=== PATIENT | male | born 1970 | race Caucasian/White ===

== ENCOUNTER → 2019-12-10 08:42 | Outpatient (BNVA) | payer BC, SELFPAY | PROVIDERS: Family Provider Family Medicine; PCP Family Medicine; Visit Provider Urology | DX: N41.1 Chronic prostatitis (principal) | CPT/HCPCS: 81001 ==

== ENCOUNTER 2020-01-22 20:30 | Emergency (ER) | payer BC, SELFPAY ==
[2020-01-22 20:33] VITALS: BP 195/122; PULSE 95; RESP 18; TEMP 36.6; O2SAT 97; BMI 52.3
--- NOTE | 2020-01-22 20:51 | W.ED.GENADLT ---
HPI - General Adult General: Chief complaint: General Medical Stated complaint: skin/ right wrist swollen Time Seen by Provider: 01/22/20 20:43 Source: patient Mode of arrival: ambulatory Limitations: no limitations History of Present Illness: HPI narrative: 49-year-old male states he has had cellulitis in the past. Patient started having erythema of his right wrist with slight pain. He denies any fevers. States pain is sharp in nature rates it a 2 out of 10. Denies any worsening or improving factors. He states that started roughly 1 hour ago. Associated symptoms: Deny chest pain, dyspnea, headache(s), nausea or vomiting Review of Systems Const: Denies: fever(s), chills, body aches or change in appetite Eyes: Denies: blurry vision or eye discomfort ENMT: Denies: throat pain or dental pain Card: Denies: chest pain Resp: Denies: dyspnea GI: Denies: abdominal pain, nausea, vomiting or diarrhea : Denies: dysuria Musc: Denies: neck pain or back pain Skin/Breast: Reports: erythema Neuro: Denies: headache(s) Psych: Denies: depression Jack/Lymph: Denies: easy bruising All/Imm: Denies: urticaria PFSH ED PFSH: Medical History (Updated 01/22/20 @ 20:47 by Thom Bullock MD) Prostatitis Surgical History History of appendectomy History of colon resection History of surgery on arm METAL PLATES AND SCREWS Family History Father Parkinsons CAD (coronary artery disease) Mother CAD (coronary artery disease) Diabetes Other Cancer Social History Smoking and tobacco status: never smoked Alcohol intake: never Adopted: No Caregiver/support person: No Lives independently: No Household members: spouse Marital status: Current occupational status: employed History of recent travel: No Physical Exam Const: COMMON NORMALS: no acute distress, patient oriented x3 and healthy appearing HENMT: COMMON NORMALS: normocephalic and atraumatic HEAD & SCALP: normocephalic and atraumatic Eye: COMMON NORMALS: Equal, round and reactive pupils present and EOMs intact bilaterally PUPIL: Yes Equal, round and reactive pupils present Neck/C-Spine: COMMON NORMALS: full ROM and supple Chest: COMMONS NORMALS: normal inspection of the chest and normal palpation of entire chest wall Resp: COMMON NORMALS: normal respiratory effort, No retractions, No use of accessory muscles and clear to auscultation bilaterally AUSCULTATION: clear to auscultation bilaterally Cardio: COMMON NORMALS: regular rate, regular rhythm and No murmurs present (Cardio) RATE: regular rate RHYTHM: regular rhythm GI: COMMON NORMALS: Normal to inspection, nondistended, normoactive bowel sounds present, Soft to palpation, non-tender and no masses PALPATION: Yes Soft to palpation Extremity: COMMON NORMALS: normal to inspection and full ROM Neuro: COMMON NORMALS: patient oriented x3, moves all extremities and no focal motor deficits Psych: COMMON NORMALS: mental status grossly normal, Normal thought process present and cooperative THOUGHT PROCESS: Normal thought process present Skin: COMMON NORMALS: no rashes or lesions noted and no wounds GENERAL SKIN EXAM: no rashes or lesions noted Course Vital Signs: Vital signs: Vital Signs Temperature 97.9 F 01/22/20 20:33 Pulse Rate 95 01/22/20 20:33 Respiratory Rate 18 01/22/20 20:33 Blood Pressure 195/122 01/22/20 20:33 Pulse Oximetry 97 01/22/20 20:33 MDM - General Adult MDM Narrative: Medical decision making narrative: Patient presents with cellulitis. Patient has no signs of septic joint or osteomyelitis. Will place patient on Keflex. He is to follow-up with PCP in 2 to 4 days return to ER if worsening. Discharge Plan Discharge Patient Disposition: Home Clinical Impression: Cellulitis Qualifiers: Site of cellulitis: extremity Site of cellulitis of extremity: upper extremity Laterality: right Qualified Code(s): L03.113 - Cellulitis of right upper limb Condition: Stable Prescriptions: New Keflex 500 mg capsule 500 mg PO Q6H 7 Days Qty: 28 RF: 0 No Action ciprofloxacin HCl 500 mg tablet 500 mg PO BID Qty: 60 RF: 1 Discharge Orders: Discharge Order (Routine); Ordered 01/22/20 Ordered By: Thom Bullock Referrals: Jasmine Westbrook DO [Primary Care Provider] - 1-3 days Discharge Diet: Advance as tolerated Discharge Activity: Resume usual activity Patient Instructions: Cellulitis (ED) Coding Level of Care Code ED Air And Water Tester for Maryan Oneal
[2020-01-22] MEDS: cefTRIAXone 1,000 mg SDV 1000 MG IM (21:05)
[2020-01-22 21:21] VITALS: BP 145/87; PULSE 78; RESP 18; O2SAT 99
== END 2020-01-22 21:24 | disposition home or self-care (01) ==
PROVIDERS: Emergency Provider Emergency Medicine; PCP Family Medicine
DX: L03.113 Cellulitis of right upper limb (principal)
CPT/HCPCS: 12345; 96372; 99281; 99283; J0696

== ENCOUNTER 2020-06-07 09:28 | Day surgery (SDC) | payer OTHER, SELFPAY ==
[2020-06-07 09:40] VITALS: BP 180/132; PULSE 76; RESP 18; TEMP 36.3; O2SAT 97; BMI 51.6
--- NOTE | 2020-06-07 10:25 | XRR_ITS ---
PROCEDURE INFORMATION: Exam: XR Chest, 1 View Exam date and time: 06/07/2020 10:37 AM Age: 50 years old Clinical indication: Cough and dyspnea; Additional info: Dyspnea/cough TECHNIQUE: Imaging protocol: XR of the chest Views: 1 view. COMPARISON: No relevant prior studies available. FINDINGS: Lungs: Unremarkable. No consolidation. Pleural space: Unremarkable. No pleural effusion. No pneumothorax. Heart/Mediastinum: Unremarkable. No cardiomegaly. Bones/joints: Unremarkable. XR/XR chest 1V portable [id number] IMPRESSION: No acute findings.
--- NOTE | 2020-06-07 10:30 | CT_ITS ---
WS: [id number] CT ABDOMEN AND PELVIS WITH CONTRAST HISTORY: Abdominal pain. Prior bowel resection. TECHNIQUE: Imaging performed of the abdomen and pelvis with IV contrast. Single phase imaging of the abdomen. Coronal and sagittal reformats are submitted. All CT scans at [facility] use at least one of these dose optimization techniques: automated exposure control; mA and/or kV adjustment per patient size (includes targeted exams where dose is matched to clinical indication); or iterativ e reconstruction. IV CONTRAST: Omnipaque 300; 95 mL IV. Oral contrast: No DLP: 2586.48 mGy.cm COMPARISON: 07/07/2011 Lower thorax: Stable 2 mm nodule in the LEFT lower lobe. Heart is normal size. Small hiatal hernia. Liver/biliary system: Normal liver with diffuse hepatic steatosis. No bile duct dilatation. Gallbladder: Normal. No gallstones or wall thickening. No pericholecystic fluid. Pancreas: Normal. Spleen: Normal. Adrenal glands: Normal. Right kidney: Mild perinephric stranding with no obstruction. There are multiple low-attenuation mass es within the parenchyma. Exophytic mass measures 3.7 cm from the mid kidney. Left kidney: Mild perinephric stranding. No obstruction. Hypodense masses with the largest measuring 2.0 cm from the mid kidney. Aorta: Normal. Lymphadenopathy: None. Free fluid: None. GI tract: No GI tract obstruction. Prior appendectomy. Abdominal wall: Multifocal abdominal wall hernias are identified. The largest hernias below the umbil icus with a maximum diameter of 6.6 cm with herniation of omental fat. Supraumbilical hernia contains fat only. There is no GI tract obstruction or incarceration of bowel. Pelvis: No free fluid. Negative urinary bladder. There is an enhancing collection measuring 1.5 x 1.9 cm to the LEFT of the anus near the gluteal cleft. Bones: No osteoblastic or osteolytic bone disease. CT/CT abdomen pelvis w con* [id number] IMPRESSION: 1. 1.5 x 1.9 cm abscess just to the LEFT of the anus. 2. Prior appendectomy. 3. Multifocal supraumbilical and infraumbilical abdominal wall hernias contain ing fat only. 4. Indeterminate bilateral cystic masses within each kidney. These have increa sed in size and number since 2011. Probably representing small complex cysts. S uggest follow-up renal mass CT protocol in 6 months to confirm stability. Ultra sound may not be helpful due to patient's body habitus. 5. Hepatic steatosis.
--- NOTE | 2020-06-07 10:32 | ED_ITS ---
HPI - General Adult General: Chief complaint: General Medical Stated complaint: sent from [facility], might need scope Time Seen by Provider: 06/07/20 10:24 History of Present Illness: HPI narrative: 50-year-old male presents emergency room with complaint of pelvic discomfort he has a history of anal fistula he was sent here by a his PCP for a possible endoscopy per the patient. He denies any fever sweats or chills. Denies dysuria urgency or frequency. Denies hematochezia melena hematemesis or coffee-ground emesis.. Onset (ago): day(s) Location: pelvis Radiation: non-radiation Severity: moderate Quality: aching Pain Consistency: intermittent Relieving factors: none Associated symptoms: Reports decreased appetite, fevers/chills, malaise and nausea; Deny chest pain, confusion, cough, diaphoresis, dyspnea, headache(s), rash, palpitations, seizures, short of breath, syncope, vomiting or weakness Treatments prior to arrival: none Review of Systems Const: Reports: malaise; Denies: diaphoresis ENMT: Denies: throat pain, ear or mastoid pain, nasal discharge or nasal congestion Card: Denies: chest pain, palpitations or syncope Resp: Denies: dyspnea GI: Reports: nausea; Denies: vomiting : Denies: flank pain, dysuria, urinary frequency or urinary urgency Skin/Breast: Denies: rash Neuro: Denies: headache(s) or confusion [facility] ED PFSH: Medical History (Updated 06/07/20 @ 12:45 by Tristan Schultz DO) Prostatitis Surgical History History of appendectomy History of colon resection History of surgery on arm METAL PLATES AND SCREWS Family History Father Parkinsons CAD (coronary artery disease) Mother CAD (coronary artery disease) Diabetes Other Cancer Social History Smoking and tobacco status: never smoked Alcohol intake: never Adopted: No Caregiver/support person: No Lives independently: No Household members: spouse Marital status: Current occupational status: employed History of recent travel: No Physical Exam Const: COMMON NORMALS: no acute distress GENERAL APPEARANCE: cooperative and comfortable ORIENTATION/CONSCIOUSNESS: Yes awake, Yes oriented to person, Yes oriented to place and Yes oriented to time HENMT: COMMON NORMALS: normocephalic, atraumatic and hearing grossly normal bilaterally HEAD & SCALP: normocephalic and atraumatic Neck/C-Spine: COMMON NORMALS: no JVD Resp: COMMON NORMALS: normal respiratory effort, No retractions, No use of accessory muscles and clear to auscultation bilaterally AUSCULTATION: clear to auscultation bilaterally Cardio: COMMON NORMALS: no JVD, regular rate, regular rhythm and No murmurs present (Cardio) RATE: regular rate RHYTHM: regular rhythm GI: COMMON NORMALS: Soft to palpation and No hepatosplenomegaly present AUSCULTATION: Yes normoactive bowel sounds PALPATION: Yes Soft to palpation, No Tenderness to palpation present (GI), No Guarding due to palpation present (GI) and Yes No hepatosplenomegaly present Extremity: COMMON NORMALS: normal to inspection, capillary refill normal, no clubbing, cyanosis or edema, no calf tenderness and no pedal edema Neuro: SENSORIUM/ORIENTATION: Yes oriented to person, Yes oriented to place and Yes oriented to time Skin: COMMON NORMALS: no rashes or lesions noted GENERAL SKIN EXAM: no rashes or lesions noted Course Vital Signs: Vital signs: Vital Signs Temperature 97.3 F L 06/07/20 09:40 Pulse Rate 76 06/07/20 09:40 Respiratory Rate 18 06/07/20 09:40 Blood Pressure 180/132 06/07/20 09:40 Pulse Oximetry 97 06/07/20 09:40 MDM - General Adult MDM Narrative: Medical decision making narrative: Left-sided perirectal abscess seen on CT discussed Dr. Noonan patient will be taken directly to the operating room and have it incised and drained under anesthesia and then discharged home from outpatient surgery. Patient was given Unasyn here in the emergency room. His last meal was 11:00 last night. Lab Data: Labs: Lab Results 06/07/20 06/07/20 Range/Units 10:52 10:52 WBC 7.1 (4.0-10.0) 10^3/ uL RBC 5.12 (4.1-5.3) 10^6/u L Hgb 14.9 (11.7-16.6) g/dL Hct 45.5 (42.0-52.0) % MCV 88.9 (80-94) fL MCH 29.1 (28.0-34.0) pg MCHC 32.7 (30.0-36.0) g/dL RDW 12.5 (12.1-15.1) % Plt Count 299 (130-400) 10^3/c mm MPV 9.1 (7.4-10.4) fL Neut % (Auto) 64.0 % Lymph % (Auto) 23.7 % [place] % (Auto) 9.3 % Eos % (Auto) 2.1 % Baso % (Auto) 0.6 % Neut # (Auto) 4.56 (1.8-7.7) 10^3/u L Lymph # (Auto) 1.7 (0.8-4.8) 10^3/u L [place] # (Auto) 0.7 (0.2-0.9) 10^3/u L Eos # (Auto) 0.2 (0.0-0.8) 10^3/u L Baso # (Auto) 0.0 (0.0-0.1) 10^3/u L Nucleated RBC % (a uto) 0 % Nucleated RBCs # 0.0 /100WBC Sodium 143 (136-145) mmol/L Potassium 4.5 (3.5-5.1) mmol/L Chloride 105 (98-107) mmol/L Carbon Dioxide 27 (22-29) mmol/L Anion Gap 15.5 (5-19) BUN 15 (6-20) mg/dL Creatinine 0.9 (0.7-1.2) mg/dL GFR Calculation 90.1 (90-130) mL/min Glucose 104 (65-115) mg/dL Calculated Osmolal ity 297 H (285-295) mOsm/k g Calcium 9.4 (8.5-10.5) mg/dL Total Bilirubin 0.5 (0.15-1.2) mg/dL AST 22 (0-40) U/L ALT 30 (0-41) U/L Alkaline Phosphata se 36 L (40-130) IU/L Total Protein 7.5 (6.6-8.7) g/dL Albumin 4.4 (3.5-5.2) g/dL Globulin 3.1 (1.3-4.6) g/dL Discharge Plan Discharge Patient Disposition: Placed in Observation Clinical Impression: Abscess, perirectal Condition: Stable Coding Level of Care Code ED Mold Closer Helper for Carolag Fwd Exam Comprehensive
[2020-06-07] MEDS: iohexol 300 mg/mL 100 mL Btl IV (11:02)
[2020-06-07 11:11] LABS: Basophils % 0.6 %; Eosinophils # 0.2 10^3/uL (0.0-0.8); Eosinophils % 2.1 %; Hematocrit 45.5 % (42.0-52.0); Hemoglobin 14.9 g/dL (11.7-16.6); Lymphocytes # 1.7 10^3/uL (0.8-4.8); Lymphocytes % 23.7 %; Mean Corpuscular HGB Conc 32.7 g/dL (30.0-36.0); Mean Corpuscular Hemoglobin 29.1 pg (28.0-34.0); Mean Corpuscular Volume 88.9 fL (80-94); Mean Platelet Volume 9.1 fL (7.4-10.4); Monocytes # 0.7 10^3/uL (0.2-0.9); Monocytes % 9.3 %; Neutrophils # 4.56 10^3/uL (1.8-7.7); Nucleated Red Blood Cells % 0 %; Platelet Count 299 10^3/cmm (130-400); Red Blood Count 5.12 10^6/uL (4.1-5.3); Red Cell Distribution Width 12.5 % (12.1-15.1); White Blood Count 7.1 10^3/uL (4.0-10.0)
[2020-06-07 11:25] LABS: Alanine Aminotransferase 30 U/L (0-41); Albumin Level 4.4 g/dL (3.5-5.2); Alkaline Phosphatase 36 IU/L (40-130); Anion Gap 15.5 (5-19); Aspartate Amino Transferase 22 U/L (0-40); Blood Urea Nitrogen 15 mg/dL (6-20); Calcium 9.4 mg/dL (8.5-10.5); Carbon Dioxide 27 mmol/L (22-29); Chloride 105 mmol/L (98-107); Creatinine Clr Calc Pharmacy 154.9195; Globulin 3.1 g/dL (1.3-4.6); Glomerular Filtration Rate 90.1 mL/min (90-130); Glucose 104 mg/dL (65-115); Osmolality Calculated 297 mOsm/kg (285-295); Potassium 4.5 mmol/L (3.5-5.1); Sodium 143 mmol/L (136-145); Total Bilirubin 0.5 mg/dL (0.15-1.2); Total Protein 7.5 g/dL (6.6-8.7)
[2020-06-07] MEDS: sodium chloride 0.9% 1,000 ML 999 ML IV (12:23)
--- NOTE | 2020-06-07 12:39 | P.ANESASSM_ITS ---
Pre-Anesthetic Assessment Pre-Anesthetic Assessment: Height/Weight: Height 1.78 m Weight 163.293 kg Temp Pulse Resp BP Pulse Ox 97.3 F L 76 18 180/132 97 06/07/20 09:40 06/07/20 09:40 06/07/20 09:40 06/07/20 09:40 06/07/20 09:40 Preop Diagnosis: Anal abscess Proposed Procedure: Operation Date: 06/07/20 12:55 Proposed Procedures p Incision And Drainage(Not Applicable) - Michael Noonan MD Familial anesthetic complications: None Was Beta Mitul taken within 24 hours: N/A Last intake: NPO > 8 hrs Social: Social History: No alcohol and No tobacco Exam: Pre-Anes Outpt Exam: alert, oriented x 3, clear to auscultation bilaterally and regular rate & rhythm Airway: Cervical ROM: WNL MP: 4 Dentition: Chipped (bottom front) Additional comments: large neck circumference Metabolic: Metabolic: Morbid obesity Anesthetic Plan: ASA status: 2 Anesthesia: MAC Risk of > 500 ml blood loss (7ml/kg in children): No PFSH Anesthesia PFSH: Medical History Prostatitis Surgical History History of appendectomy History of colon resection History of surgery on arm METAL PLATES AND SCREWS Family History Father Parkinsons CAD (coronary artery disease) Mother CAD (coronary artery disease) Diabetes Other Cancer Social History Smoking and tobacco status: never smoked Alcohol intake: never Adopted: No Caregiver/support person: No Lives independently: No Household members: spouse Marital status: Current occupational status: employed History of recent travel: No Data Anesthesia CBC & Chem 7: 06/07/20 10:52 06/07/20 10:52 Other Labs: Laboratory Results - last 48 hr 06/07/20 06/07/20 10:52 10:52 WBC 7.1 RBC 5.12 Hgb 14.9 Hct 45.5 MCV 88.9 MCH 29.1 MCHC 32.7 RDW 12.5 Plt Count 299 MPV 9.1 Neut % (Auto) 64.0 Lymph % (Auto) 23.7 [place] % (Auto) 9.3 Eos % (Auto) 2.1 Baso % (Auto) 0.6 Neut # (Auto) 4.56 Lymph # (Auto) 1.7 [place] # (Auto) 0.7 Eos # (Auto) 0.2 Baso # (Auto) 0.0 Nucleated RBC % (auto) 0 Nucleated RBCs # 0.0 Sodium 143 Potassium 4.5 Chloride 105 Carbon Dioxide 27 Anion Gap 15.5 BUN 15 Creatinine 0.9 GFR Calculation 90.1 Glucose 104 Calculated Osmolality 297 H Calcium 9.4 Total Bilirubin 0.5 AST 22 ALT 30 Alkaline Phosphatase 36 L Total Protein 7.5 Albumin 4.4 Globulin 3.1 Cardiac Studies: No Data to Display
[2020-06-07 12:58] VITALS: BP 197/121; PULSE 74; RESP 18; TEMP 36.7; O2SAT 98
--- NOTE | 2020-06-07 13:05 | PM.HP ---
Providers/Chief Complaint Primary Care Provider: Jasmine Westbrook DO Chief Complaint: sent from [facility], might need scope History of Present Illness Gian Arellano is a 50 year old male who has been dealing with recurrent episodes of perianal abscess for many years and usually has 3-4 flareups a year which subsequently drains spontaneously and resolves. He has had an incision and drainage by his PCP on one occasion. He states that 3 days ago he started having pain, redness and swelling in that region. Denies any fevers, chills or abdominal pain. Patient has family history of colon cancer and his last colonoscopy was more than 10 years ago. Denies bleeding AR. Review of Systems General: Reports: 10 or more systems reviewed and unremarkable except in HPI and below Medications/Allergies Home Medications Medication Instructions Recorded Confirmed Last Taken Type aspirin 325 mg PO PRN PRN 06/07/20 06/07/20 06/05/20 History ibuprofen 200 mg PO Q6H PRN 06/07/20 06/07/20 06/06/20 History Allergies Allergy/AdvReac Type Severity Reaction Status Date / Time tetanus and diphtheria Allergy Severe RASH Verified 06/07/20 12:52 toxoids vancomycin Allergy Severe RASH Verified 06/07/20 12:52 meperidine [From Demerol] Allergy Mild RASH Verified 06/07/20 12:52 erythromycin base Allergy Unknown UNKNOWN Verified 06/07/20 12:52 PFSH Acute PFSH: Medical History (Updated 06/07/20 @ 13:11 by Michael Noonan MD) HTN (hypertension) Prostatitis Surgical History History of appendectomy History of colon resection History of surgery on arm METAL PLATES AND SCREWS Family History Father Parkinsons CAD (coronary artery disease) Mother CAD (coronary artery disease) Diabetes Other Cancer Social History Smoking and tobacco status: never smoked Alcohol intake: never Adopted: No Caregiver/support person: No Lives independently: No Household members: spouse Marital status: Current occupational status: employed History of recent travel: No Vitals/I&O/Wt Last Vital Signs Temp 97.3 F L 06/07/20 09:40 Pulse 76 06/07/20 09:40 Resp 18 06/07/20 09:40 BP 180/132 06/07/20 09:40 Pulse Ox 97 06/07/20 09:40 Weight last 48 hrs Weight 360 lb Physical Exam Narrative: EXAM NARRATIVE: HEENT: Normocephalic Eye: Sclera /conjunctiva normal Respiratory and chest: Bilateral clear breath sounds on auscultation Cardiovascular: Normal S1 and S2 heart sounds Abdomen: Soft to palpation Neurological: Oriented to place person and time Skin: Intact, 3 x 3 cm perianal abscess Data : 06/07/20 10:52 06/07/20 10:52 A&P Assessment and plan (1) Abscess, perirectal: 50-year-old male with recurrent perianal abscesses. Patient currently hemodynamically stable, no leukocytosis, no evidence of sepsis. Discussed with the patient about possibility of underlying fistula. Plan for incision and drainage of perianal abscess, possible fistulotomy Procedure, risks, benefits and alternatives have been discussed with the patient who wishes to proceed with surgery. Status: Acute Attestations Medical Necessity Statement*: Perianal abscess for I&D Coding Level of Care Code Acute Travel Information Center Supervisor for [facility] Diagnoses Abscess, perirectal K61.1
[2020-06-07] MEDS: sodium chloride 0.9% 1,000 ML 30 ML IV (13:20)
[2020-06-07] MEDS: ampicillin-sulbactam 3 GM in sodium chloride 0.9% (plus) 50 ML IV (13:23)
[2020-06-07 14:11] VITALS: BP 154/104; PULSE 83; RESP 18; TEMP 36.4; O2SAT 100
--- NOTE | 2020-06-07 14:25 | PM.OP ---
Operative Report Date of procedure: June 07, 2020 Pre-op Diagnosis: Perianal abscess Post-op Diagnosis: 3 x 3 cm perianal abscess No obvious fistulous tract identified Procedure Done: Incision and drainage of perianal abscess Surgeon: Michael Noonan Anesthesia: MAC Condition: stable Disposition: PACU Procedure: The patient was taken to the operating room and placed in left lateral position under MAC after IV antibiotic had been administered. The perianal area was prepped and draped in a sterile manner. Using a lacrimal probe the opening of the abscess cavity was examined and there was no obvious fistulous tract identified. The tract was also injected with hydrogen peroxide mixed with saline and there was no internal opening identified. The abscess was opened using a 15 blade revealing a cavity measuring 3 x 3 cm. Loculations were taken down bluntly, wound irrigated with saline and cavity was packed with Kerlix gauze soaked in 0.5% Marcaine. ABDs were placed. The patient was transferred to recovery room in stable condition.
[2020-06-07 14:40] VITALS: BP 160/97; PULSE 79; RESP 18; O2SAT 100
--- NOTE | 2020-06-07 18:39 | ANE.PACU2 ---
Inpatient post-anesthesia follow up: Airway intact: Yes Vital signs: Temperature 97.6 F Pulse Rate [Monito r] 76 Pulse Rate 79 Respiratory Rate 18 Blood Pressure [Le ft Arm] 180/132 Blood Pressure 160/97 Pulse Oximetry 100 Oxygen Delivery Me thod Room Air Oxygen Flow Rate Fraction of Inspir ed Oxygen Hydration adequate: Yes Nausea and vomiting: No Pain level: 2 Mental status: Baseline
== END 2020-06-07 15:10 | disposition home or self-care (01) ==
LOC: ER 10:24 → OPS 12:22
PROVIDERS: Emergency Provider Family Medicine; PCP Family Medicine; Visit Provider Surgery
PROC: (CPT 46050; principal; 2020-06-07 12:55)
DX: K61.0 Anal abscess (principal); I10 Essential (primary) hypertension; E66.01 Morbid (severe) obesity due to excess calories; Z68.43 Body mass index [BMI] 50.0-59.9, adult; Z90.49 Acquired absence of other specified parts of digestive tract
CPT/HCPCS: 46050; 12345; 71045; 74177; 80053; 85025; 96365; 99282; J0295; J2250; J2704; J3010; J3490; J7030; Q9967

== ENCOUNTER → 2020-08-19 08:54 | Outpatient (BNVA) | payer OTHER, SELFPAY | PROVIDERS: PCP Family Medicine; Visit Provider Urology | DX: Z12.5 Encounter for screening for malignant neoplasm of prostate (principal); N41.1 Chronic prostatitis | CPT/HCPCS: 81003; G0103 ==

== ENCOUNTER → 2021-02-22 13:39 | Outpatient (BNVA) | payer OTHER, SELFPAY | PROVIDERS: PCP Family Medicine; Visit Provider Urology | DX: N41.1 Chronic prostatitis (principal); N20.1 Calculus of ureter; R39.15 Urgency of urination | CPT/HCPCS: 81003 ==

== ENCOUNTER → 2021-03-31 09:52 | Outpatient (BNVA) | payer OTHER, SELFPAY | PROVIDERS: PCP Family Medicine; Visit Provider Surgery | DX: Z11.52 Encounter for screening for COVID-19 (principal); Z20.822 Contact with and (suspected) exposure to COVID-19 | CPT/HCPCS: 87635 ==

== ENCOUNTER 2021-04-07 08:41 | Day surgery (SDC) | payer OTHER, SELFPAY ==
[2021-04-05 10:57] VITALS: BMI 52.2
--- NOTE | 2021-04-07 08:59 | ANES.PREANE2 ---
Pre-Anesthetic Assessment Pre-Anesthetic Assessment: Height/Weight: Height 1.78 m Weight 165.108 kg Preop Diagnosis: screening colonoscopy Proposed Procedure: Operation Date: 04/07/21 10:15 Proposed Procedures p Colonoscopy 30014 Z80.0(Not Applicable) - Michael Noonan MD Familial anesthetic complications: none Last intake: > 8 hrs Social: Social History: No alcohol and No tobacco Exam: Pre-Anes Outpt Exam: alert, oriented x 3, clear to auscultation bilaterally and regular rate & rhythm Airway: MP: 4 Dentition: Chipped Additional comments: large tongue CV/HEM: CV/HEM: HTN GI: Comments: bowel resection Metabolic: Metabolic: Morbid obesity Anesthetic Plan: ASA status: 2 Anesthesia: MAC Risk of > 500 ml blood loss (7ml/kg in children): No Other Pertinent Information: No blood products, no albumin, cellsaver accepts PFSH Anesthesia PFSH: Medical History (Updated 02/24/21 @ 17:06 by Gayla Brush) HTN (hypertension) Prostatitis Psychiatric care Umbilical hernia, incarcerated Surgical History History of appendectomy History of colon resection perforated appendix complications History of colonoscopy 5+ years ago History of surgery on arm METAL PLATES AND SCREWS Status post incision and drainage (06/07/20) Family History Father Parkinsons CAD (coronary artery disease) Mother CAD (coronary artery disease) Diabetes Other Cancer Social History Alcohol intake: never Adopted: No Caregiver/support person: No Lives independently: No Household members: spouse Marital status: Current occupational status: employed History of recent travel: No Data Anesthesia Cardiac Studies: No Data to Display
[2021-04-07 09:13] VITALS: BP 208/150; PULSE 83; RESP 18; TEMP 36.8; O2SAT 97
[2021-04-07] MEDS: sodium chloride 0.9% 1,000 ML 30 ML IV (09:25)
[2021-04-07] MEDS: lisinopril 5 mg Tablet PO (09:55)
[2021-04-07] MEDS: metoprolol succinate ER (24 HR) 50 mg Tablet PO (09:55)
[2021-04-07 09:57] VITALS: BP 221/128
[2021-04-07 10:39] VITALS: BP 162/104
--- NOTE | 2021-04-07 11:22 | P.HP_ITS ---
Same Day Surgery H&P Indication for Procedure/HPI DATE OF PROCEDURE: April 07, 2021 CHIEF COMPLAINT/INDICATIONFOR SURGICAL PROCEDURE: screening colonoscopy PREOP DIAGNOSIS: screening colonoscopy PLANNED PROCEDRUE: Operation Date: 04/07/21 10:15 Proposed Procedures p Colonoscopy 02433 Z80.0(Not Applicable) - Michael Noonan MD Medications/Allergies* Home Medications Medication Instructions Recorded Confirmed Type benazepril 5 mg tablet 5 mg PO BID tab 02/22/21 04/07/21 History metoprolol succinate 25 mg 25 mg PO BID tab 02/22/21 04/07/21 History tablet,extended release 24 hr Allergies/Adverse Reactions Allergy/AdvReac Type Severity Reaction Status Date / Time tetanus and diphtheria Allergy Severe RASH Verified 04/07/21 09:08 toxoids vancomycin Allergy Severe RASH Verified 04/07/21 09:08 meperidine [From Demerol] Allergy Mild RASH Verified 04/07/21 09:08 erythromycin base Allergy Unknown UNKNOWN Verified 04/07/21 09:08 Current Medications: Generic Name Dose Route Start Last Admin Trade Name Brianq PRN Reason Stop Dose Admin Sodium Chloride 1,000 mls @ 30 mls/hr 04/07/21 09:00 04/07/21 09:25 Sodium Chloride 0.9% IV 04/08/21 08:59 30 mls/hr .Q24H RADHA Administration Lisinopril 5 mg 04/07/21 09:00 04/07/21 09:55 Lisinopril 5 Mg Tablet PO 5 mg DAILY RADHA Administration Metoprolol Succinate 50 mg 04/07/21 09:45 04/07/21 09:55 Metoprolol Succinate Er (24 Hr) 50 Mg Tablet PO 50 mg DAILY RADHA Administration Pertinent History/Comorbid Conditions* Medical History (Updated 02/24/21 @ 17:06 by Gayla Brush) HTN (hypertension) Prostatitis Psychiatric care Umbilical hernia, incarcerated Surgical History (Updated 08/24/20 @ 15:24 by Michael Noonan MD) History of appendectomy History of colon resection perforated appendix complications History of colonoscopy 5+ years ago History of surgery on arm METAL PLATES AND SCREWS Status post incision and drainage (06/07/20) Family History (Updated 12/10/19 @ 08:39 by Carli Bennett LPN) Mother Diabetes Mother CAD (coronary artery disease) Father Mother Cancer Parkinsons Father Social History Alcohol intake: never Adopted: No Caregiver/support person: No Lives independently: No Household members: spouse Marital status: Current occupational status: employed History of recent travel: No Pertinent Exam Findings alert, oriented x 3 and regular rate & rhythm Recommendations Surgery/Procedure today Coding Level of Care Code Acute Wastewater Treatment Operator for Maryan Oneal
[2021-04-07 11:54] VITALS: BP 143/94; PULSE 73; RESP 16; TEMP 36.2; O2SAT 98
[2021-04-07 12:01] VITALS: BP 151/91; PULSE 72; RESP 18; TEMP 36.4; O2SAT 98
== END 2021-04-07 12:25 | disposition home or self-care (01) ==
PROVIDERS: PCP Family Medicine; Visit Provider Surgery
PROC: 0DJD8ZZ Inspection of Lower Intestinal Tract, Via Natural or Artificial Opening Endoscopic (ICD-10-PCS; CPT 45378; principal; 2021-04-07 10:15)
DX: Z12.11 Encounter for screening for malignant neoplasm of colon (principal); K57.30 Diverticulosis of large intestine without perforation or abscess without bleeding; I10 Essential (primary) hypertension; Z90.89 Acquired absence of other organs; Z98.890 Other specified postprocedural states
CPT/HCPCS: 96360; 96361; G0121; J2704; J7030

== ENCOUNTER → 2021-05-31 15:34 | Outpatient (BNVA) | payer OTHER, SELFPAY | PROVIDERS: PCP Family Medicine; Visit Provider Urology | DX: R39.15 Urgency of urination (principal) | CPT/HCPCS: 81003 ==

== ENCOUNTER 2021-11-28 19:07 | Emergency (ER) | payer OTHER, SELFPAY ==
[2021-11-28 19:13] VITALS: BP 215/119; PULSE 90; RESP 16; TEMP 37.8; O2SAT 98; BMI 53.4
--- NOTE | 2021-11-28 19:25 | XRR_ITS ---
PROCEDURE INFORMATION: Exam: XR Chest Exam date and time: 11/28/2021 7:47 PM Age: 51 years old Clinical indication: Other: Hypertention; Additional info: HTN TECHNIQUE: Imaging protocol: Radiologic exam of the chest. Views: 1 view. COMPARISON: CR XR chest 1V portable [id number] 06/07/2020 10:37 AM FINDINGS: Lungs: Unremarkable. No consolidation. Pleural spaces: Unremarkable. No pleural effusion. No pneumothorax. Heart/Mediastinum: Unremarkable. No cardiomegaly. Bones/joints: Unremarkable. XR/XR chest 1V portable [id number] IMPRESSION: No acute findings.
[2021-11-28 19:31] VITALS: BP 199/116; PULSE 95; RESP 22; O2SAT 97
--- NOTE | 2021-11-28 19:31 | W.ED.FEVER ---
HPI - Fever General: Chief Complaint: Fever Stated Complaint: High BP Time Seen by Provider: 11/28/21 19:20 Source: patient Mode of arrival: ambulatory Limitations: no limitations History of Present Illness: 51-year-old male who states that he has been having an ear infection ongoing for last few weeks. He states he is been prescribed steroid eardrops has not been on any antibiotic eardrops. States he also finished an oral antibiotic roughly 4 to 5 days ago. He states he was mainly concerned tonight about his blood pressure. He states he took it at home and it was over 200. He states his blood pressures actually been running high for quite some time. He has been taking his blood pressure medicine. Denies any pain anywhere besides his left ear. He states that ear pain he rates a 6 out of 10. Denies any headaches denies any vomiting or diarrhea. Associated symptoms: Deny abdominal pain, chest pain, diarrhea, dysuria, headache(s), nausea or vomiting Review of Systems Const: Reports: fever(s) Eyes: Denies: blurry vision or eye discomfort ENMT: Reports: ear or mastoid pain Card: Denies: chest pain Resp: Denies: dyspnea GI: Denies: abdominal pain, nausea, vomiting or diarrhea : Denies: dysuria Musc: Denies: neck pain or back pain Skin/Breast: Denies: rash Neuro: Denies: headache(s) Psych: Denies: depression Jack/Lymph: Denies: easy bruising All/Imm: Denies: urticaria PFSH ED PFSH: Medical History HTN (hypertension) Otitis externa Prostatitis Umbilical hernia, incarcerated Surgical History History of appendectomy History of colon resection cecetomy for perforated appendix complications History of colonoscopy (04/07/21) sigmoid diverticulosis History of surgery on arm METAL PLATES AND SCREWS Status post incision and drainage (06/07/20) Family History Father Parkinsons CAD (coronary artery disease) Mother CAD (coronary artery disease) Diabetes Other Cancer Social History Smoking and tobacco status: never smoked Alcohol intake: never Adopted: No Caregiver/support person: No Lives independently: No Household members: spouse Marital status: Current occupational status: employed History of recent travel: No Physical Exam Const: COMMON NORMALS: no acute distress, patient oriented x3 and healthy appearing HENMT: COMMON NORMALS: normocephalic and atraumatic HEAD & SCALP: normocephalic and atraumatic OTHER: otitiis media and otitis externa of left ear/ no mastoid tenderness Eye: COMMON NORMALS: Equal, round and reactive pupils present and EOMs intact bilaterally PUPIL: Yes Equal, round and reactive pupils present Neck/C-Spine: COMMON NORMALS: full ROM and supple Chest: COMMONS NORMALS: normal inspection of the chest and normal palpation of entire chest wall Resp: COMMON NORMALS: normal respiratory effort, No retractions, No use of accessory muscles and clear to auscultation bilaterally AUSCULTATION: clear to auscultation bilaterally Cardio: COMMON NORMALS: regular rate, regular rhythm and No murmurs present (Cardio) RATE: regular rate RHYTHM: regular rhythm GI: COMMON NORMALS: Normal to inspection, nondistended, normoactive bowel sounds present, Soft to palpation, non-tender and no masses PALPATION: Yes Soft to palpation Extremity: COMMON NORMALS: normal to inspection and full ROM Neuro: COMMON NORMALS: patient oriented x3, moves all extremities and no focal motor deficits Psych: COMMON NORMALS: mental status grossly normal, Normal thought process present and cooperative THOUGHT PROCESS: Normal thought process present Skin: COMMON NORMALS: no rashes or lesions noted and no wounds GENERAL SKIN EXAM: no rashes or lesions noted Course Vital Signs: Vital signs: Vital Signs Temperature 100.1 F H 11/28/21 19:13 Pulse Rate 90 11/28/21 19:13 Respiratory Rate 16 11/28/21 19:13 Blood Pressure 215/119 11/28/21 19:13 Pulse Oximetry 98 11/28/21 19:13 MDM - Fever Medical Decision Making Patient presents here with ear pain does have otitis externa and media we will start him on Keflex along with ofloxacin drops. He is hypertensive here we will double his metoprolol dose. He is stable for discharge is to follow-up with PCP and keep a log of his blood pressure. He is return if worsening he understands agrees to plan. Lab Data : 11/28/21 19:44 11/28/21 19:44 Radiology Impressions Chest X-Ray 11/28/21 19:25 IMPRESSION: No acute findings. Laboratory Results WBC 4.2 10^3/uL (4.0-10.0) 11/28/21 19:44 RBC 4.75 10^6/uL (4.1-5.3) 11/28/21 19:44 Hgb 14.0 g/dL (11.7-16.6) 11/28/21 19:44 Hct 40.9 % (42.0-52.0) L 11/28/21 19:44 MCV 86.1 fl (80-94) 11/28/21 19:44 MCH 29.5 pg (28.0-34.0) 11/28/21 19:44 MCHC 34.2 g/dL (30.0-36.0) 11/28/21 19:44 RDW 12.4 % (12.1-15.1) 11/28/21 19:44 Plt Count 218 10^3/cmm (130-400) 11/28/21 19:44 MPV 9.2 fL (7.4-10.4) 11/28/21 19:44 Neut % (Auto) 63.6 % 11/28/21 19:44 Lymph % (Auto) 17.2 % 11/28/21 19:44 [place] % (Auto) 16.0 % 11/28/21 19:44 Eos % (Auto) 1.4 % 11/28/21 19:44 Baso % (Auto) 0.9 % 11/28/21 19:44 Neut # (Auto) 2.69 10^3/uL (1.8-7.7) 11/28/21 19:44 Lymph # (Auto) 0.7 10^3/uL (0.8-4.8) L 11/28/21 19:44 [place] # (Auto) 0.7 10^3/uL (0.2-0.9) 11/28/21 19:44 Eos # (Auto) 0.1 10^3/uL (0.0-0.8) 11/28/21 19:44 Baso # (Auto) 0.0 10^3/uL (0.0-0.1) 11/28/21 19:44 Nucleated RBC % (auto) 0 % 11/28/21 19:44 Nucleated RBCs # 0.0 /100WBC 11/28/21 19:44 Sodium 138 mmol/L (136-145) 11/28/21 19:44 Potassium 4.1 mmol/L (3.5-5.1) 11/28/21 19:44 Chloride 102 mmol/L (98-107) 11/28/21 19:44 Carbon Dioxide 27 mmol/L (22-29) 11/28/21 19:44 Anion Gap 13.1 (5-19) 11/28/21 19:44 BUN 12 mg/dL (6-20) 11/28/21 19:44 Creatinine 0.8 mg/dL (0.7-1.2) 11/28/21 19:44 GFR Calculation 102.7 mL/min (90-130) 11/28/21 19:44 Glucose 147 mg/dL (65-115) H 11/28/21 19:44 Calculated Osmolality 288 mOsm/kg (285-295) 11/28/21 19:44 Calcium 9.7 mg/dL (8.5-10.5) 11/28/21 19:44 Total Bilirubin 0.4 mg/dL (0.15-1.2) 11/28/21 19:44 AST 39 U/L (0-40) 11/28/21 19:44 ALT 69 U/L (0-41) H 11/28/21 19:44 Alkaline Phosphatase 34 IU/L (40-130) L 11/28/21 19:44 Troponin T Baseline 10 ng/L (0-15) 11/28/21 19:44 Total Protein 6.9 g/dL (6.6-8.7) 11/28/21 19:44 Albumin 4.3 g/dL (3.5-5.2) 11/28/21 19:44 Globulin 2.6 g/dL (1.3-4.6) 11/28/21 19:44 Discharge Plan Discharge Patient Disposition: Home Clinical Impression: Otitis externa, Hypertension Otitis media Qualifiers: Otitis media type: unspecified Laterality: left Qualified Code(s): H66.92 - Otitis media, unspecified, left ear Condition: Stable Prescriptions: New cephalexin 500 mg capsule 500 mg PO TID 7 Days Qty: 21 0RF ofloxacin 0.3 % drops 10 drp otic (ear) DAILY 7 Days 0RF Changed metoprolol succinate 25 mg tablet extended release 24 hr 50 mg PO BID Qty: 30 0RF No Action triamcinolone acetonide 0.1 % ointment 1 applic topical BID PRN0RF Rx Instructions: to wrist no more than 3 wks/mo benazepril 5 mg tablet 5 mg PO BID 0RF tamsulosin 0.4 mg capsule 0.4 mg PO QDAY Qty: 30 12RF fluconazole 150 mg tablet 300 mg PO .once weekly Qty: 48 0RF fluticasone propionate [Allergy Relief (fluticasone)] 50 mcg/actuation spray,suspension 2 spray intranasal DAILY Qty: 16 0RF Rx Instructions: administer into each nostril ciprofloxacin-dexamethasone [Ciprodex] 0.3-0.1 % drops,suspension 4 drp otic (ear) BID 7 Days Qty: 7.5 0RF Discharge Orders: Discharge ED (Routine); Ordered 11/28/21 Ordered By: Thom Bullock Referrals: Jasmine Westbrook DO [Primary Care Provider] - Discharge Diet: Advance as tolerated Discharge Activity: Resume usual activity Patient Instructions: Ear Infection (ED), Hypertension (ED) Coding Level of Care Code ED Supervisor [employer] for [employer] Fwd Exam Comprehensive
[2021-11-28 19:55] LABS: Basophils % 0.9 %; Eosinophils # 0.1 10^3/uL (0.0-0.8); Eosinophils % 1.4 %; Hematocrit 40.9 % (42.0-52.0); Lymphocytes # 0.7 10^3/uL (0.8-4.8); Lymphocytes % 17.2 %; Mean Corpuscular HGB Conc 34.2 g/dL (30.0-36.0); Mean Corpuscular Hemoglobin 29.5 pg (28.0-34.0); Mean Corpuscular Volume 86.1 fl (80-94); Mean Platelet Volume 9.2 fL (7.4-10.4); Monocytes # 0.7 10^3/uL (0.2-0.9); Neutrophils # 2.69 10^3/uL (1.8-7.7); Neutrophils % 63.6 %; Nucleated Red Blood Cells % 0 %; Platelet Count 218 10^3/cmm (130-400); Red Blood Count 4.75 10^6/uL (4.1-5.3); Red Cell Distribution Width 12.4 % (12.1-15.1); White Blood Count 4.2 10^3/uL (4.0-10.0)
[2021-11-28] MEDS: acetaminophen 500 mg Tablet 1000 MG PO (19:57)
[2021-11-28] MEDS: labetalol 5 mg/mL SDV 20mL 10 MG IVP (19:58)
[2021-11-28 20:00] VITALS: BP 179/110; PULSE 90; RESP 15; O2SAT 96
[2021-11-28] MEDS: cefTRIAXone 1,000 MG in sodium chloride 0.9% (plus) 50 ML 100 MG IV (20:04)
[2021-11-28 20:16] LABS: Alanine Aminotransferase 69 U/L (0-41); Albumin Level 4.3 g/dL (3.5-5.2); Alkaline Phosphatase 34 IU/L (40-130); Anion Gap 13.1 (5-19); Aspartate Amino Transferase 39 U/L (0-40); Blood Urea Nitrogen 12 mg/dL (6-20); Calcium 9.7 mg/dL (8.5-10.5); Carbon Dioxide 27 mmol/L (22-29); Chloride 102 mmol/L (98-107); Globulin 2.6 g/dL (1.3-4.6); Glomerular Filtration Rate 102.7 mL/min (90-130); Glucose 147 mg/dL (65-115); Osmolality Calculated 288 mOsm/kg (285-295); Potassium 4.1 mmol/L (3.5-5.1); Sodium 138 mmol/L (136-145); Total Bilirubin 0.4 mg/dL (0.15-1.2); Total Protein 6.9 g/dL (6.6-8.7)
[2021-11-28 20:17] LABS: Troponin(5th) Baseline 10 ng/L (0-15)
[2021-11-28 20:30] VITALS: BP 150/100; PULSE 94; RESP 24; O2SAT 96
== END 2021-11-28 21:13 | disposition home or self-care (01) ==
PROVIDERS: Emergency Provider Emergency Medicine; PCP Family Medicine
DX: H66.92 Otitis media, unspecified, left ear (principal); H60.92 Unspecified otitis externa, left ear; I10 Essential (primary) hypertension
CPT/HCPCS: 71045; 80053; 84484; 85025; 96365; 96375; 99285; J0696; J3490

== ENCOUNTER 2022-06-20 14:53 | Emergency (ER) | payer MEDICAID, SELFPAY ==
[2022-06-20 14:59] VITALS: BP 170/122; PULSE 76; RESP 16; TEMP 36.7; O2SAT 95; BMI 52.3
--- NOTE | 2022-06-20 15:04 | XR_ITS ---
WS: [id number] 3 views of the left fourth finger, 06/20/2022 Clinical Data: injury/swelling/pain; 4th finger Comparison: None. Findings: There may be a small avulsion fracture from the base of the middle phalanx of the left fourth finger. The remainder of the fourth finger is unremarkable. XR/XR finger LT min 2V [id number] Impression: Possible avulsion fracture from the base of middle phalanx of the left fourth f curt.
--- NOTE | 2022-06-20 15:05 | W.ED.UPPEXIN ---
HPI - Extremity Injury (Upper) General: Chief Complaint: Extremity Injury, Upper Stated Complaint: left hand/ finger injury Time Seen by Provider: 06/20/22 15:02 Source: patient Mode of arrival: ambulatory Limitations: no limitations History of Present Illness: Patient is a nice 52-year-old male who presents to ED today for evaluation of a left finger injury that he sustained after the finger was jammed while trying to lift a tire. He has noticed pain and swelling to the left ring finger. He has no other injuries or complaints at this time. MD complaint: injury to: left and finger Onset (ago): day(s) Other injuries: none Place: work Severity: moderate Relieving factors: immobilization Exacerbating factors: movement of extremity Context: direct blow Associated symptoms: Reports no associated symptoms Review of Systems Musc: Reports: extremity pain (L 4th finger) and extremity swelling (L 4th finger) Skin/Breast: Reports: other (no lacerations/abrasions) Neuro: Denies: numbness in extremities or sensory changes PFS ED PFSH: Medical History HTN (hypertension) Otitis externa Prostatitis Umbilical hernia, incarcerated Surgical History History of appendectomy History of colon resection cecetomy for perforated appendix complications History of colonoscopy (04/07/21) sigmoid diverticulosis History of surgery on arm METAL PLATES AND SCREWS Status post incision and drainage (06/07/20) Family History Father Parkinsons CAD (coronary artery disease) Mother CAD (coronary artery disease) Diabetes Other Cancer Social History Smoking and tobacco status: never smoked Alcohol intake: never Adopted: No Caregiver/support person: No Lives independently: No Household members: spouse Marital status: Current occupational status: employed History of recent travel: No Physical Exam Const: COMMON NORMALS: no acute distress, patient oriented x3, no limitations and alert Extremity: COMMON NORMALS: capillary refill normal GENERAL: Yes normal exam except as noted LEFT UPPER EXTREMITY: Yes hand & digits OTHER: pt has swelling/pain/ecchymosis to volar aspect of L 4th finger overlying proximal phalanx, PIP joint, and middle phalanx; fairly good ROM however slightly limited secondary to swelling; no breaks in skin; normal sensory and cap refill Neuro: COMMON NORMALS: patient oriented x3, moves all extremities, no focal motor deficits and no sensory deficits noted SENSORIUM/ORIENTATION: Yes alert Skin: TRAUMA: no lacerations or abrasions Course Vital Signs: Vital signs: Vital Signs Temperature 98.1 F 06/20/22 14:59 Pulse Rate 76 06/20/22 14:59 Respiratory Rate 16 06/20/22 14:59 Blood Pressure 170/122 06/20/22 14:59 Pulse Oximetry 95 06/20/22 14:59 Oxygen Delivery Me thod 06/20/22 14:59 MDM - Extremity Injury (Upper) Medical Decision Making Personal interpretation of XR shows questionable small avulsion fracture at the PIP joint-donor site question distal portion of proximal phalanx vs proximal middle phalanx. Patient will be placed in a finger splint and we will have him follow-up with orthopedics. Discharge Plan Discharge Patient Disposition: Home Clinical Impression: Fracture of finger of left hand Qualifiers: Encounter type: initial encounter Finger: ring finger Fracture type: closed Phalanx: unspecified phalanx Fracture alignment: nondisplaced Qualified Code(s): S62.605A - Fracture of unspecified phalanx of left ring finger, initial encounter for closed fracture Condition: Stable Prescriptions: No Action triamcinolone acetonide 0.1 % ointment 1 applic topical BID PRN Rx Instructions: to wrist no more than 3 wks/mo benazepril 5 mg tablet 5 mg PO BID tamsulosin 0.4 mg capsule 0.4 mg PO QDAY Qty: 30 12RF fluconazole 150 mg tablet 300 mg PO .once weekly Qty: 48 0RF fluticasone propionate [Allergy Relief (fluticasone)] 50 mcg/actuation spray,suspension 2 spray intranasal DAILY Qty: 16 0RF Rx Instructions: administer into each nostril ciprofloxacin-dexamethasone [Ciprodex] 0.3-0.1 % drops,suspension 4 drp otic (ear) BID 7 Days Qty: 7.5 0RF ciclopirox 8 % solution 1 applic topical DAILY 28 Days Qty: 6.6 6RF Rx Instructions: Apply to nails daily. Do not wash nails for 8 hours post application; remove w/ alchohol every 7 days. metoprolol succinate 25 mg tablet extended release 24 hr 50 mg PO BID Qty: 30 0RF Discharge Orders: Discharge ED (Routine); Ordered 06/20/22 Ordered By: Lorna Rao Referrals: Jasmine Westbrook DO [Primary Care Provider] - Coding Level of Care Code ED Livestock Sales Representative for Chg Fwd Exam Expanded Problem Focused
[2022-06-20 15:48] VITALS: PULSE 94; RESP 20; O2SAT 94
--- NOTE | 2022-06-21 09:27 | DCPLANNER ---
Addendum entered by Delia Honeycutt 07/28/22 07:38: Patient had an appointment scheduled with ortho - patient did not attend appointment. Addendum entered by Delia Honeycutt 06/21/22 14:45: Patient has a follow up appointment scheduled for Sunday, June 26, 2022 at 3:[address] Kim at ortho. Clinic will call patient with appointment information. Original Note: manager of procurement had message to schedule a follow up appointment for patient with ortho. manager of procurement sent patients information to the front office staff at ortho. Patients information will be printed and reviewed. Clinic will call patient with appointment information.
== END 2022-06-20 15:57 | disposition home or self-care (01) ==
PROVIDERS: Emergency Provider Physician Assistant; PCP Family Medicine
DX: S62.605A Fracture of unspecified phalanx of left ring finger, initial encounter for closed fracture (principal); I10 Essential (primary) hypertension; X58.XXXA Exposure to other specified factors, initial encounter
CPT/HCPCS: 29130; 73140; 99283

== ENCOUNTER 2023-06-25 08:54 | Emergency (ER) | payer OTHER, MEDICAID, SELFPAY ==
[2023-06-25 09:18] VITALS: BP 209/126; PULSE 85; TEMP 36.7; O2SAT 95; BMI 53.1
[2023-06-25 09:19] LABS: Basophils % 0.6 %; Eosinophils % 0.3 %; Hematocrit 43.3 % (37-53); Lymphocytes % 13.9 %; Mean Corpuscular HGB Conc 33.9 g/dL (30-55); Mean Corpuscular Hemoglobin 29.6 pg (27-33); Mean Corpuscular Volume 87.3 fl (82-101); Monocytes # 0.6 10^3/uL (0.2-0.9); Monocytes % 8.5 %; Neutrophils # 5.47 10^3/uL (1.8-7.7); Neutrophils % 76.1 %; Nucleated Red Blood Cells % 0 %; Platelet Count 253 10^3/cmm (157-399); Red Blood Count 4.96 10^6/uL (3.85-5.65); Red Cell Distribution Width 12.6 % (12.1-15.1); White Blood Count 7.18 10^3/uL (3.29-11.43)
[2023-06-25 09:38] LABS: Alanine Aminotransferase 87 U/L (0-41); Albumin Level 4.3 g/dL (3.5-5.2); Alkaline Phosphatase 39 U/L (40-130); Anion Gap 16.1 (5-19); Aspartate Amino Transferase 64 U/L (0-40); Blood Urea Nitrogen 12 mg/dL (6-20); Calcium 9.9 mg/dL (8.5-10.5); Carbon Dioxide 26 mmol/L (22-29); Chloride 100 mmol/L (98-107); Glomerular Filtration Rate 70.6 mL/min (90-130); Glucose 182 mg/dL (65-115); Lipase 17 U/L (13-60); Osmolality Calculated 290 mOsm/kg (285-295); Potassium 4.1 mmol/L (3.5-5.1); Sodium 138 mmol/L (136-145); Total Bilirubin 0.5 mg/dL (0.15-1.2); Total Protein 7.3 g/dL (6.6-8.7)
--- NOTE | 2023-06-25 09:38 | ED_ITS ---
HPI - Abdominal Pain 2 General: Chief Complaint: Abdominal Pain Stated Complaint: ABD Pain Time Seen by Provider: 06/25/23 09:09 Source: patient Mode of arrival: ambulatory History of Present Illness: 53-year-old male presents emergency room with left lower quadrant abdominal pain that began overnight. He feels bloated feels like he needs to defecate but cannot he denies any hematochezia melena hematemesis or coffee-ground emesis. He had a previous partial right hemicolectomy for a perforated appendix. He has a family history of colon cancer has had multiple colonoscopies in the past which have been unremarkable. He denies any fever sweats chills dysuria urgency or frequency or hematuria. He has not noticed anything that exacerbates or relieves his pain. MD elicited complaint: abdominal pain Associated Symptoms: Denies chills, dysuria and fever(s) Review of Systems 2 Const: Denies: fever(s) or chills Card: Denies: chest pain Resp: Denies: dyspnea GI: Denies: abdominal pain : Denies: dysuria, urinary frequency or urinary urgency Musc: Denies: neck pain or back pain Skin/Breast: Denies: rash PFSH ED 2 PFSH: Medical History Otitis externa Umbilical hernia, incarcerated HTN (hypertension) Prostatitis Surgical History History of colonoscopy (04/07/21) sigmoid diverticulosis Status post incision and drainage (06/07/20) History of surgery on arm METAL PLATES AND SCREWS History of colon resection cecetomy for perforated appendix complications History of appendectomy Family History Father Parkinson disease CAD (coronary artery disease) Mother CAD (coronary artery disease) Diabetes Other Cancer Social History Smoking and tobacco/nicotine status: never used tobacco/nicotine Alcohol intake: never Substance/Drug Use: never Adopted: No Caregiver/support person: No Lives independently: No Household members: spouse Marital status: Current occupational status: employed Physical Exam 2 Const: COMMON NORMALS: no acute distress GENERAL APPEARANCE: cooperative and comfortable ORIENTATION/CONSCIOUSNESS: Yes awake, Yes oriented to person, Yes oriented to place and Yes oriented to time HENMT: COMMON NORMALS: normocephalic, atraumatic and hearing grossly normal bilaterally HEAD & SCALP: normocephalic and atraumatic Resp: COMMON NORMALS: normal respiratory effort, No retractions, No use of accessory muscles and clear to auscultation bilaterally AUSCULTATION: clear to auscultation bilaterally Cardio: COMMON NORMALS: regular rate, regular rhythm and No murmurs present (Cardio) RATE: regular rate RHYTHM: regular rhythm GI: COMMON NORMALS: Soft to palpation and No hepatosplenomegaly present A USCULTATION: Yes normoactive bowel sounds PALPATION: Yes Soft to palpation, No Tenderness to palpation present (GI), No Guarding due to palpation present (GI) and Yes No hepatosplenomegaly present Extremity: COMMON NORMALS: normal to inspection, capillary refill normal, no clubbing, cyanosis or edema, no calf tenderness and no pedal edema Neuro: SENSORIUM/ORIENTATION: Yes oriented to person, Yes oriented to place and Yes oriented to time Skin: COMMON NORMALS: no rashes or lesions noted GENERAL SKIN EXAM: no rashes or lesions noted Course 2 Vital Signs: Vital signs: Vital Signs Temperature 98.1 F 06/25/23 09:18 Pulse Rate 89 06/25/23 12:53 Respiratory Rate 16 06/25/23 09:48 Blood Pressure 164/99 06/25/23 12:53 Pulse Oximetry 94 06/25/23 12:53 Oxygen Delivery Me thod Room Air 06/25/23 09:18 MDM - Abdominal Pain Medical Decision Making 3.5 mm left renal stone. Suspect this will pass pain is controlled blood pressure improved his pain control did give him medications as well continue same medications gave hydrocodone increase tamsulosin to 0.8 daily ondansetron as needed strain urine for stone follow-up with urology Medical Records I reviewed the patient's medical records. Lab Data I reviewed the patient's lab results. 06/25/23 09:13 06/25/23 09:13 Labs/Radiology: Laboratory Results WBC 7.18 10^3/uL (3.29-11.43) 06/25/23 09:13 RBC 4.96 10^6/uL (3.85-5.65) 06/25/23 09:13 Hgb 14.70 g/dL (11.27-16.99) 06/25/23 09:13 Hct 43.3 % (37-53) 06/25/23 09:13 MCV 87.3 fl (82-101) 06/25/23 09:13 MCH 29.6 pg (27-33) 06/25/23 09:13 MCHC 33.9 g/dL (30-55) 06/25/23 09:13 RDW 12.6 % (12.1-15.1) 06/25/23 09:13 Plt Count 253 10^3/cmm (157-399) 06/25/23 09:13 MPV 9.0 fL (7.4-10.4) 06/25/23 09:13 Neut % (Auto) 76.1 % 06/25/23 09:13 Lymph % (Auto) 13.9 % 06/25/23 09:13 [place] % (Auto) 8.5 % 06/25/23 09:13 Eos % (Auto) 0.3 % 06/25/23 09:13 Baso % (Auto) 0.6 % 06/25/23 09:13 Neut # (Auto) 5.47 10^3/uL (1.8-7.7) 06/25/23 09:13 Lymph # (Auto) 1.0 10^3/uL (0.8-4.8) 06/25/23 09:13 Pender # (Auto) 0.6 10^3/uL (0.2-0.9) 06/25/23 09:13 Eos # (Auto) 0.0 10^3/uL (0.0-0.8) 06/25/23 09:13 Baso # (Auto) 0.0 10^3/uL (0.0-0.1) 06/25/23 09:13 Nucleated RBC % (auto) 0 % 06/25/23 09:13 Nucleated RBCs # 0.0 /100WBC 06/25/23 09:13 Sodium 138 mmol/L (136-145) 06/25/23 09:13 Potassium 4.1 mmol/L (3.5-5.1) 06/25/23 09:13 Chloride 100 mmol/L (98-107) 06/25/23 09:13 Carbon Dioxide 26 mmol/L (22-29) 06/25/23 09:13 Anion Gap 16.1 (5-19) 06/25/23 09:13 BUN 12 mg/dL (6-20) 06/25/23 09:13 Creatinine 1.1 mg/dL (0.7-1.2) 06/25/23 09:13 GFR Calculation 70.6 mL/min (90-130) L 06/25/23 09:13 Glucose 182 mg/dL (65-115) H 06/25/23 09:13 Calculated Osmolality 290 mOsm/kg (285-295) 06/25/23 09:13 Calcium 9.9 mg/dL (8.5-10.5) 06/25/23 09:13 Total Bilirubin 0.5 mg/dL (0.15-1.2) 06/25/23 09:13 AST 64 U/L (0-40) H 06/25/23 09:13 ALT 87 U/L (0-41) H 06/25/23 09:13 Alkaline Phosphatase 39 U/L (40-130) L 06/25/23 09:13 Total Protein 7.3 g/dL (6.6-8.7) 06/25/23 09:13 Albumin 4.3 g/dL (3.5-5.2) 06/25/23 09:13 Globulin 3.0 g/dL (1.3-4.6) 06/25/23 09:13 Lipase 17 U/L (13-60) 06/25/23 09:13 Urine Color Yellow (Yellow) 06/25/23 10:54 Urine Appearance Clear (CLEAR) 06/25/23 10:54 Urine pH 6 (5-7) 06/25/23 10:54 Ur Specific [place] 1.020 (1.005-1.030) 06/25/23 10:54 Urine Protein Neg (Negative) 06/25/23 10:54 Urine Glucose (UA) Norm (Normal) 06/25/23 10:54 Urine Ketones Negative (Negative) 06/25/23 10:54 Urine Blood 3+ (Negative) H 06/25/23 10:54 Urine Nitrate Negative (Negative) 06/25/23 10:54 Urine Bilirubin Neg (Negative) 06/25/23 10:54 Urine Urobilinogen Neg mg/dL (Negative) 06/25/23 10:54 Ur Leukocyte Esterase Negative (Negative) 06/25/23 10:54 Urine RBC 50-80 /hpf (0-2) H 06/25/23 10:54 Urine WBC 0-4 /hpf (0-5) H 06/25/23 10:54 Ur Squamous Epith Cells Rare /hpf (0-5) 06/25/23 10:54 Amorphous Sediment Not Reportable 06/25/23 10:54 Urine Bacteria Trace /hpf (NONE) 06/25/23 10:54 Urine Mucus Trace /hpf 06/25/23 10:54 All radiology interpretation(s) finalized by discharge Discharge Plan Discharge Patient Disposition: Home Clinical Impression: Calculus of kidney Condition: Stable Prescriptions: New hydrocodone-acetaminophen 5-325 mg tablet 1 tab PO Q6H PRN (Reason: pain) Qty: 25 0RF ondansetron HCl 4 mg tablet 4 mg PO Q6H PRN (Reason: nausea and vomiting) Qty: 20 0RF Flomax 0.4 mg capsule 0.8 mg PO DAILY Qty: 14 0RF No Action benazepril 5 mg tablet 5 mg PO BID tamsulosin 0.4 mg capsule 0.4 mg PO QDAY Qty: 30 12RF fluticasone propionate [Allergy Relief (fluticasone)] 50 mcg/actuation spray,suspension 2 spray intranasal DAILY Qty: 16 0RF Rx Instructions: administer into each nostril ciclopirox 8 % solution 1 applic topical DAILY 28 Days Qty: 6.6 6RF Rx Instructions: Apply to nails daily. Do not wash nails for 8 hours post application; remove w/ alchohol every 7 days. Compound W 17 % liquid 1 applic topical DAILY Qty: 9 1RF Rx Instructions: Apply to each wart once daily. polymyxin B sulf-trimethoprim 10,000 unit- 1 mg/mL drops 1 drp ophthalmic (eye) Q3H 7 Days Qty: 10 0RF Rx Instructions: while awake; do not exceed 6 doses in 24 hours amoxicillin-pot clavulanate 875-125 mg tablet 1 tab PO BID 7 Days Qty: 14 0RF metoprolol succinate 25 mg tablet extended release 24 hr 50 mg PO BID Qty: 30 0RF Discharge Orders: Discharge ED (Routine); Ordered 06/25/23 Ordered By: Tristan Schultz Referrals: Jasmine Westbrook, [Primary Care Provider] - Discharge Diet: Usual diet Discharge Activity: Increase activity as tolerated Patient Instructions: Kidney Stones (ED), How to Strain Your Urine (ED), Opioid Safety, Pain Management Activity Restrictions/Additional Instructions: Thank you for choosing [facility] for your healthcare needs today. Please realize this is an emergency room and that we are providing you with a medical screening exam and this may not be complete and all inclusive of all the testing and or work up that you may need to determine your ailment or severity of your illness. It is very important that you follow up as instructed or that you return to the Emergency Department should you have concerns or if your condition changes or worsens in any way. You were seen today for left flank pain. CT shows a 3 and half millimeter kidney stone. At this size it will likely pass on its own. Use the medications given to control pain and assist passage of the stone. Case management make arrangements for you to see a urologist in follow-up. Coding Level of Care Code ED Range Examiner for Maryan Oneal
[2023-06-25 09:48] VITALS: BP 244/128; PULSE 82; RESP 16; O2SAT 97
[2023-06-25] MEDS: ondansetron 2 mg/ML SDV 2 mL 4 MG IVP (09:52)
[2023-06-25] MEDS: sodium chloride 0.9% 1,000 ML 999 ML IV (09:52)
[2023-06-25] MEDS: morphine 4 mg/mL SDV 1 mL IVP ×2 (09:52→10:37)
--- NOTE | 2023-06-25 09:52 | CT_ITS ---
WS: [id number] CT ABDOMEN PELVIS TECHNIQUE: Noncontrast CT of the abdomen and pelvis with coronal and sagittal reformatted images. CLINICAL INFORMATION: Abdominal pain COMPARISON: None. DLP: 1448.[address] scans at [facility] use at least one of these dose optimization techniques: automated e xposure control; mA and/or kV adjustment per patient size (includes targeted exams where dose is matc hed to clinical indication); or iterative reconstruction. FINDINGS: 3.5 mm obstructing LEFT proximal ureteral calculus with mild LEFT hydronephrosis. Inflammatory strand ing and edema about the LEFT kidney. Distal ureter is decompressed. No obstructing RIGHT renal or ureteral calculi. Nonobstructing RIGHT calyceal tip calculus measuring 5 mm. Small hemorrhagic RIGHT renal cyst measuring 7 mm. Lung bases are well aerated. Small esophagea l hiatal hernia. Mild hepatomegaly. Noncontrast spleen is normal. Normal noncontrast pancreas. Adrenal glands are normal. Large fat-containing umbilical hernia similar to previous. Additional infr aumbilical hernia containing a loop of nonobstructed sigmoid colon appears progressed compared to pre vious. Additional fat-containing supraumbilical hernia. Stable exophytic RIGHT renal cyst measuring 3 .6 cm. IMPRESSION: 1. 3.5 mm obstructing LEFT proximal ureteral calculus with mild LEFT hydronephrosis. Inflammatory st randing and edema about the LEFT kidney. 2. Supraumbilical, umbilical, and infraumbilical fat-containing hernias. Infraumbilical hernia conta ins a loop of nonobstructed sigmoid colon. 3. Small esophageal hiatal hernia. 4. No other significant interval changes. Notified Tristan Schultz DO at 06/25/2023 10:24 AM.
[2023-06-25 11:16] LABS: Add Urine Microscopic? YES; Bilirubin Urine Neg (Negative); Blood Urine 3+ (Negative); Glucose Urine UA Norm (Normal); Ketones Urine Negative (Negative); Leukocyte Esterase Urine Negative (Negative); Nitrate Urine Negative (Negative); Protein Urine Neg (Negative); Urine Appearance Clear (CLEAR); Urine Color Yellow (Yellow); Urobilinogen Urine Neg (Negative); pH Urine 6 (5-7)
[2023-06-25 11:17] LABS: Add Urine Culture? Yes; Bacteria Urine TRACE /hpf; Mucus Urine TRACE /hpf; RBC Urine 50-80 /hpf (0-2); Squamous Epithelial Cell Urine RARE /hpf (0-5); WBC Urine 0-4 /hpf (0-5)
[2023-06-25] MEDS: labetalol 5 mg/mL SDV 20mL 10 MG IVP (11:21)
[2023-06-25 11:42] VITALS: BP 212/122; PULSE 78; O2SAT 91
[2023-06-25 12:52] VITALS: BP 164/99; PULSE 89; O2SAT 94
[2023-06-25 12:53] VITALS: BP 164/99; PULSE 89; O2SAT 94
== END 2023-06-25 12:56 | disposition home or self-care (01) ==
PROVIDERS: Physician Assistant; Emergency Provider Family Medicine; PCP Family Medicine
DX: N20.0 Calculus of kidney (principal)
CPT/HCPCS: 36415; 74176; 80053; 81001; 83690; 85025; 87086; 96361; 96374; 96375; 96376; 99285; J2270; J2405; J3490; J7030

== ENCOUNTER 2024-07-31 08:36 | Outpatient (CLI) | payer OTHER, SELFPAY ==
--- NOTE | 2024-07-31 08:41 | MM_ITS ---
WS: [id number] BILATERAL 3D TOMOSYNTHESIS DIGITAL DIAGNOSTIC MAMMOGRAPHY WITH CAD CLINICAL INFORMATION: BREAST LUMP IN LOWER OUTER QUADRANT HISTORY: Breast lumps COMPARISON: None. TECHNIQUE: Bilateral CC, MLO, and ML views. FINDINGS: Scattered fibroglandular densities bilaterally. Palpable markers bilateral breasts. Deep to the inferior LEFT breast marker there is a partially obscured ovoid lesion measuring 2.7 cm. Ultrasound of this area is pending. No other suspicious mammographic abnormalities. ULTRASOUND BREAST BILATERAL TECHNIQUE: Ultrasound bilateral breast focused area of concern. CLINICAL INFORMATION: BREAST LUMP IN LOWER OUTER QUADRANT COMPARISON: None. FINDINGS: RIGHT BREAST: No abnormalities in the areas of patient concern RIGHT breast. LEFT BREAST: Ultrasound LEFT breast at the 7 o'clock position demonstrates an ovoid hypoechoic mass with internal cystic change. This measures approximately 3.2 x 2.5 x 1.5 cm 4 cm from the nipple. This lesion is indeterminate and recommend further evaluation with ultrasound-guided biopsy. MM/MM diag BI tomosynthesis [id number] IMPRESSION: DENSITY: There are scattered areas of fibroglandular density. BI-RADS: 4 - Suspicious Finding - Biopsy Should Be Considered. FOLLOW UP: US Guided Biopsy Recommended Recommend ultrasound-guided biopsy of the LEFT breast mass.
== END 2024-07-31 08:37 | disposition home or self-care (01) ==
PROVIDERS: PCP Family Medicine
DX: N63.24 Unspecified lump in the left breast, lower inner quadrant (principal); R92.323 Mammographic fibroglandular density, bilateral breasts
CPT/HCPCS: 76642; 77062; G0279

== ENCOUNTER 2024-08-27 11:55 | Outpatient (CLI) | payer OTHER, SELFPAY ==
--- NOTE | 2024-08-27 12:07 | US_ITS ---
WS: [id number] ULTRASOUND-GUIDED LEFT BREAST BIOPSY HISTORY: ABNORMAL US OF BREAST COMPARISON: 07/31/2024 Procedure, risks and complications are explained to the patient. Medications are reviewed. Consent is obtained. The mass in the LEFT breast is localized with ultrasound. Mass is along the inframammary fold. Skin is cleansed with ChloraPrep and anesthetized with 1% buffered lidocaine. Small dermatome is made. Under sterile conditions mass is biopsied with a 14-gauge Achieve needle. Multiple core biopsies are performed. Material placed in formalin and sent to pathology for review. No complications encountered. Breast tissue marker (Open English ultrasound enhanced ribbon): Single. Patient left the radiology suite with no complications. Patient is instructed to return to [facility] or call with any concerns. US/[place] [id number] IMPRESSION: 1. Uncomplicated core needle biopsy palpable LEFT breast mass near 7:00 toward s the inframammary fold. PATHOLOGY: Features consistent with epidermal inclusion cyst. Features of parti al cyst rupture and dermal histocytosis with reactive changes. No malignancy. RECOMMENDATION: No additional imaging follow-up necessary. Surgical removal may be considered.
== END 2024-08-27 11:56 | disposition home or self-care (01) ==
PROVIDERS: PCP Family Medicine
DX: R92.8 Other abnormal and inconclusive findings on diagnostic imaging of breast (principal); N64.89 Other specified disorders of breast
CPT/HCPCS: 19083; 88305